=== PATIENT | female | born 1955 | race Caucasian/White ===

== ENCOUNTER → 2020-03-07 17:38 | Outpatient (CLI) | payer MEDICARE, BC, SELFPAY ==
--- NOTE | ~2020-03-07 | MM_ITS ---
EXAMINATION: MM screening [facility] BI w christie HISTORY: Screening mammogram TECHNIQUE: Craniocaudal and mediolateral oblique 3-D tomosynthesis images were obtained and synthetic 2-D images were generated. CAD analysis was submitted and interpreted. COMPARISON: 11/21/2018 bilateral digital screening mammogram 12/09/2017 diagnostic right digital mammogram and limited right breast ultrasound 11/08/2017, 10/07/2016, 09/27/2015 bilateral digital screening mammogram examinations BREAST PARENCHYMAL COMPOSITION: There are scattered areas of fibroglandular density. FINDINGS: 6 mm asymmetric low-density opacity is noted posteriorly in the inner mid right breast. Diane gnostic right mammogram and targeted right breast ultrasound examination are recommended. Otherwise there is no evidence of suspicious mass, calcification, or architectural distortion to sugg est malignancy in either breast. There has been no other suspicious interval change. IMPRESSION: 1. 6 mm asymmetry in posterior inner mid right breast 2. Diagnostic right mammogram and targeted right breast ultrasound examination are recommended. BI-RADS Category 0: Incomplete: Needs additional imaging evaluation. Reviewed, dictated and finalized at location B. 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
== END ==
PROVIDERS: Visit Provider Nurse Practitioner Obstetrics & Gynecology
DX: Z12.31 Encounter for screening mammogram for malignant neoplasm of breast (principal); R92.8 Other abnormal and inconclusive findings on diagnostic imaging of breast
CPT/HCPCS: 77063; 77067

== ENCOUNTER → 2020-04-04 14:19 | Outpatient (CLI) | payer MEDICARE, BC, SELFPAY ==
--- NOTE | ~2020-04-04 | MMUS_ITS ---
EXAMINATION: MM diagnostic mammo unilat RT, US breast RT limited HISTORY: Right breast mass on screening mammogram TECHNIQUE: Additional 3-D tomosynthesis images of the right breast were performed and synthetic 2-D i mages were generated. CAD analysis was submitted and interpreted. High resolution limited right breas t ultrasound was performed. COMPARISON: 03/07/2020, 11/21/2018, 12/19/2017, 11/08/2017 FINDINGS: MAMMOGRAPHIC FINDINGS: There is a 7 mm oval, obscured, low density mass in the posterior third of inner breast at the 3:00 l ocation 9 cm from the nipple. With spot compression, this is demonstrated to be stable when compared with prior mammograms, consistent with a benign finding. No suspicious calcification or architectural distortion are identified. ULTRASOUND: There is no evidence of focal abnormal solid or cystic lesion in the vicinity of the mammographic fin ding in question. IMPRESSION: 1. No mammographic or sonographic evidence of malignancy. 2. Recommend routine screening mammography in one year. BI-RADS Category 2: Benign finding(s). Reviewed, dictated and finalized at location A. RITIES ADVISER IMPRESSION: 1. No mammographic or sonographic evidence of malignancy. 2. Recommend routine screening mammography in one year. BI-RADS Category 2: Benign finding(s).
== END ==
PROVIDERS: Visit Provider Nurse Practitioner Obstetrics & Gynecology
DX: R92.8 Other abnormal and inconclusive findings on diagnostic imaging of breast (principal)
CPT/HCPCS: 76642; 77065

== ENCOUNTER → 2020-04-19 17:34 | Outpatient (CLI) | payer MEDICARE, BC, SELFPAY ==
--- NOTE | ~2020-04-19 | DEXA_ITS ---
Bone Density Report Name: Karlee Mendez Age: 65 Sex: Female Ethnicity: White Date of : 1955 Indication: postmenopausal; screening for osteoporosis; height loss; Referring Provider: Nadya, Kathryn Hooks Study: Bone densitometry was performed. Exam Date: April 19, 2020 Accession number: [id number] Bone Density: Region BMD T-score Z-score Classification AP Spine (L1-L4) 1.023 -0.2 1.6 Normal Femoral Neck (Left) 0.692 -1.4 0.1 Osteopenia Total Hip (Left) 0.829 -0.9 0.4 Normal Femoral Neck (Right) 0.692 -1.4 0.2 Osteopenia Total Hip (Right) 0.835 -0.9 0.4 Normal Total Hip Mean 0.832 -0.9 0.4 Normal World Health Organization criteria for BMD impression classify patients as: Normal (T-score at or above -1.0), Osteopenia (T-score between -1.0 and -2.5), or Osteoporosis (T-score at or below -2.5). 10-year Fracture Risk(1): Major Osteoporotic Fracture 8.2% Hip Fracture 0.8% Reported Risk Factors: [place] (), Neck BMD=0.692, BMI=36.4 (1) FRAX(R) Version 3.08. Fracture probability calculated for an untreated patient. Fracture probability may be lower if the patient has received treatment. Previous Exams: Region Exam Age BMD T-score BMD Change BMD Change Date g/cm2 vs Baseline vs Previous AP Spine(L1-L4) 04/19/2020 65 1.023 -0.2 -0.021 0.030* 11/08/2017 62 0.992 -0.5 -0.051 0.017 09/27/2015 60 0.975 -0.7 -0.068 -0.003 10/16/2011 56 0.978 -0.6 -0.066* -0.008 04/20/2008 53 0.986 -0.6 -0.058* -0.058* 03/11/2005 49 1.044 0.0 Total Hip(Left) 04/19/2020 65 0.829 -0.9 -0.152 -0.017 11/08/2017 62 0.846 -0.8 -0.134 -0.026 09/27/2015 60 0.872 -0.6 -0.108 0.030 10/16/2011 56 0.843 -0.8 -0.138* -0.060* 04/20/2008 53 0.903 -0.3 -0.077* -0.077* 03/11/2005 49 0.980 0.3 Total Hip(Right) 04/19/2020 65 0.835 -0.9 -0.085 -0.014 11/08/2017 62 0.849 -0.8 -0.071 0.000 09/27/2015 60 0.849 -0.8 -0.072 0.059 10/16/2011 56 0.790 -1.2 -0.131* -0.067* 04/20/2008 53 0.857 -0.7 -0.064* -0.064* 03/11/2005 49 0.921 -0.2 *Denotes significance at 95% confidence level, LSC for AP Spine = 0.022 g/cm2, LSC for Total Hip = 0.027 g/cm2 Clinical Information Provided by Patient:
== END ==
PROVIDERS: Visit Provider Nurse Practitioner Obstetrics & Gynecology
DX: Z78.0 Asymptomatic menopausal state (principal); M85.852 Other specified disorders of bone density and structure, left thigh; M85.851 Other specified disorders of bone density and structure, right thigh
CPT/HCPCS: 77080

== ENCOUNTER → 2021-08-03 13:38 | Outpatient (CLI) | payer MEDICARE, BC, SELFPAY ==
--- NOTE | ~2021-08-03 | MM_ITS ---
EXAMINATION: MM screening myrna BI w christie HISTORY: Screening mammogram TECHNIQUE: Craniocaudal and mediolateral oblique 3-D tomosynthesis images were obtained and synthetic 2-D images were generated. CAD analysis was submitted and interpreted. COMPARISON: April 04, 2020 diagnostic right mammogram and limited right breast ultrasound March 07, 2020, November 21, 2018 bilateral screening mammogram examinations December 09, 2017 diagnostic right mammogram and limited right breast ultrasound November 08, 2017 bilateral screening mammogram BREAST PARENCHYMAL COMPOSITION: There are scattered areas of fibroglandular density. FINDINGS: Stable circumscribed low-density opacity in the inner mid right breast posteriorly. There i s no evidence of suspicious mass, calcification, or architectural distortion to suggest malignancy in either breast. There has been no suspicious interval change. IMPRESSION: 1. No mammographic evidence of malignancy. 2. Recommend routine screening mammography in one year. BI-RADS Category 2: Benign finding(s).. Reviewed, dictated and finalized at location A.
== END ==
PROVIDERS: PCP Internal Medicine; Visit Provider Internal Medicine
DX: Z12.31 Encounter for screening mammogram for malignant neoplasm of breast (principal)
CPT/HCPCS: 77063; 77067

== ENCOUNTER 2022-06-17 09:03 | Emergency (ER) | payer MEDICARE, BC, SELFPAY ==
--- NOTE | ~2022-06-17 | XR_ITS ---
XR wrist LT min 3V DATE: 06/17/2022 09:21 INDICATION: Fall. Lateral pain, limited range of motion TECHNIQUE: 4 views COMPARISON: None FINDINGS: There is a minimally displaced comminuted intra-articular fracture of the distal radius, wi th dorsal inclination of the distal radial articular surface. The distal ulna including ulnar styloid process appears intact. Severe osteoarthritic the first carpometacarpal joint. Osteopenia. IMPRESSION: Comminuted intra-articular fracture of the distal radius Reviewed, dictated and finalized at location B.
--- NOTE | 2022-06-17 09:42 | ED.GENADULT ---
HPI - General Adult General Chief complaint: Extremity Injury, Upper <PUJA Cevallos Last Filed: 06/17/22 10:51> Stated complaint: fall, Left wrist pain <PUJA Cevallos Last Filed: 06/17/22 10:51> Time Seen by Provider: 06/17/22 09:08 <Cas Greenberg PA-C - Last Filed: 06/17/22 10:51> Source: patient <PUJA Cevallos Last Filed: 06/17/22 10:51> Mode of arrival: ambulatory <PUJA Cevallos Last Filed: 06/17/22 10:51> Limitations: no limitations <PUJA Cevallos Last Filed: 06/17/22 10:51> History of Present Illness HPI narrative: This is a 59-year-old female presents to the ED with chief complaint of left wrist injury onset this morning just prior to arrival. Patient was walking downstairs and tripped on the last step and fell onto the left upper extremity. She felt immediate pain in the left wrist. Denies any further site of pain or injury. Denies numbness or weakness. Not on any blood thinners. <PUJA Cevallos Last Filed: 06/17/22 10:51> Related Data Home medications: Home Medications Medication Instructions Recorded Confirmed biotin 10,000 mcg capsule mcg PO 04/17/20 05/28/22 calcium carbonate 600 mg-vitamin 1 tablet PO DAILY 04/17/20 05/28/22 D3 20 mcg (800 unit) chewable tablet (Caltrate 600 plus D) multivitamin 1 tablet PO DAILY 04/17/20 05/28/22 <PUJA Cevallos Last Filed: 06/17/22 10:51> Allergies/adverse reactions: Allergies Allergy/AdvReac Type Severity Reaction Status Date / Time No Known Allergies Allergy Unknown Verified 01/08/22 13:26 <PUJA Cevallos Last Filed: 06/17/22 10:51> Review of Systems Review of Systems: CONSTITUTIONAL: Denies fever, chills, or sweats. SKIN: Denies rash or itching. MUSCULOSKELETAL: See HPI. NEUROLOGIC: Denies headache, numbness, dizziness, or weakness. PSYCHIATRIC: Denies anxiety or depression. <Cas Greenberg PA-C - Last Filed: 06/17/22 10:51> PMFSH Past Medical History Medical History: Medical History Arthritis Carpal tunnel syndrome on both sides High blood pressure <Cas Greenberg PA-C - Last Filed: 06/17/22 10:51> Family History Family History: Family History Mother Hypertension Father Heart disease <PUJA Cevallos Last Filed: 06/17/22 10:51> Social History Social History: Social History Smoking status: Never smoker Second hand tobacco smoke exposure: No Alcohol intake: never Substance use: never Substance use type: does not use Lack of Transportation: No Lack of Food: Never True Current Housing: I Have Housing Concerned About Future Housing: No Difficulty Paying Gas/Electric Bills: No Difficulty Paying for Meds: No Currently Unemployed: No Education: High School Diploma/GED Difficulty w/ Childcare or Family Care: No Gender identity (if verbalized by the patient): Female <Cas Greenberg PA-C Last Filed: 06/17/22 10:51> Exam Narrative: GENERAL: Well-appearing, well-nourished, and in no acute distress. HEAD: Normocephalic, atraumatic. EXTREMITIES: LUE: No deformity to the left wrist. No bruising. Mild swelling. Marked tenderness at the left lateral wrist. No anatomical snuffbox tenderness present. RUE: Benign. MSK exam is otherwise unremarkable. Normal range of motion. No edema. SKIN: Warm, dry, no rash. No bruising noted. No wounds. NEURO: Alert and oriented x3. No focal deficits. PSYCH: Normal mood and affect. <PUJA Cevallos Last Filed: 06/17/22 10:51> Course DOWNSTAIRS MAID/PA Physician Supervision This visit was performed by both a physician and an APC. I performed all aspects of the MDM as documented. <José Miguel Rai MD - Last Filed: 06/17/22 10:21> Vital Signs Vital signs: Vi
[2022-06-17] MEDS: HYDROcodone/acetaminophen (*CRX) 7.5-325 MG TABLET 1 TAB PO (09:44)
[2022-06-17 09:59] VITALS: BP 142/71; PULSE 68; RESP 16; O2SAT 97
[2022-06-17 10:38] VITALS: BP 141/79; PULSE 61; RESP 18; O2SAT 95
== END 2022-06-17 10:44 | disposition home or self-care (01) ==
PROVIDERS: Emergency Provider Physician Assistant; PCP Internal Medicine; Referring Provider Orthopaedic Surgery
DX: S52.572A Other intraarticular fracture of lower end of left radius, initial encounter for closed fracture (principal); I10 Essential (primary) hypertension; M19.90 Unspecified osteoarthritis, unspecified site; W10.9XXA Fall (on) (from) unspecified stairs and steps, initial encounter
CPT/HCPCS: 29125; 73110; 99284; A4565; A9270

== ENCOUNTER 2023-01-03 15:58 | Outpatient (CLI) | payer MEDICARE, BC, SELFPAY ==
--- NOTE | ~2023-01-03 | MM_ITS ---
EXAMINATION: MM screening myrna BI w christie HISTORY: Screening mammogram TECHNIQUE: Craniocaudal and mediolateral oblique 3-D tomosynthesis images were obtained and synthetic 2-D images were generated. CAD analysis was submitted and interpreted. COMPARISON: 08/03/2021, 03/07/2020 BREAST PARENCHYMAL COMPOSITION:There are scattered areas of fibroglandular density. FINDINGS: No suspicious mass, calcification, or architectural distortion are identified in either cindy ast to suggest malignancy. There has been no suspicious interval change. IMPRESSION: No mammographic evidence of malignancy. Recommend routine screening mammography in one year. BI-RADS Category 1: Negative Reviewed, dictated and finalized at location . 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
== END 2023-01-03 15:59 ==
LOC: MICIMG 16:00
PROVIDERS: PCP Nurse Practitioner; Visit Provider Nurse Practitioner
DX: Z12.31 Encounter for screening mammogram for malignant neoplasm of breast (principal)
CPT/HCPCS: 77063; 77067

== ENCOUNTER 2024-05-12 09:54 | Outpatient (CLI) | payer MEDICARE, BC, SELFPAY ==
--- NOTE | 2024-05-12 | ECG_ITS ---
Test Date: 2024-05-12 10:31:57 Measurements Intervals [place] Rate: 80 P: 66 LA: 168 QRS: 21 QRSD: 90 T: 35 QT: 380 QTc: 440 Interpretive Statements SINUS RHYTHM POSSIBLE LEFT ATRIAL ENLARGEMENT [-0.1mV P-WAVE IN V1/V2] No previous ECG available for comparison Electronically Signed On 05-12-2024 13:44:26 CDT by Whitney Torres M.D.
--- OUTSIDE RECORDS SUMMARY | 2024-05-12 10:56 | XMS_ITS | Clinical Summary ---
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
--- OUTSIDE RECORDS SUMMARY | 2024-05-12 10:56 | XMS_ITS | Encounter Summary ---
Author Organization [employer] Address 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
--- OUTSIDE RECORDS SUMMARY | 2024-05-12 10:56 | XMS_ITS | Encounter Summary ---
Author Organization [facility] [facility] Address 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
--- OUTSIDE RECORDS SUMMARY | 2024-05-12 10:56 | XMS_ITS | Encounter Summary ---
Author Organization [facility] Address 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
== END 2024-05-12 09:55 | disposition home or self-care (01) ==
LOC: ANHIMG 09:56 → ANHCARD 10:02
PROVIDERS: PCP Nurse Practitioner; Visit Provider Podiatrist Foot & Ankle Surgery
DX: R03.0 Elevated blood-pressure reading, without diagnosis of hypertension (principal)
CPT/HCPCS: 93005

== ENCOUNTER 2024-08-21 09:27 | Outpatient (CLI) | payer MEDICARE, BC, SELFPAY ==
--- NOTE | ~2024-08-21 | MM_ITS ---
EXAMINATION: MM screening [facility] BI w christie HISTORY: Screening mammogram TECHNIQUE: Craniocaudal and mediolateral oblique 3-D tomosynthesis images were obtained and synthetic 2-D images were generated. CAD analysis was submitted and interpreted. COMPARISON: 01/03/2023, 08/03/2021, 03/07/2020 BREAST PARENCHYMAL COMPOSITION:Not Dense. There are scattered areas of fibroglandular density. FINDINGS: No suspicious mass, calcification, or architectural distortion are identified in either cindy ast to suggest malignancy. There has been no suspicious interval change. IMPRESSION: No mammographic evidence of malignancy. Recommend routine screening mammography in one year. BI-RADS Category 1: Negative Reviewed, dictated and finalized at location .
== END 2024-08-21 09:28 | disposition home or self-care (01) ==
LOC: MICIMG 09:28
PROVIDERS: PCP Nurse Practitioner; Visit Provider Nurse Practitioner
DX: Z12.31 Encounter for screening mammogram for malignant neoplasm of breast (principal)
CPT/HCPCS: 77063; 77067

== ENCOUNTER 2024-08-25 15:13 | Outpatient (CLI) | payer MEDICARE, BC, SELFPAY ==
--- NOTE | ~2024-08-25 | DEXA_ITS ---
Bone Density Report Name: NOLAN JOHNSON Age: 69 Sex: Female Ethnicity: White Date of : 1955 Indication: postmenopausal; screening for osteoporosis; height loss; prior fracture; Referring Provider: JULIET KAUFFMAN Study: Bone densitometry was performed. Exam Date: August 25, 2024 Accession number: [id number] Bone Density: Region BMD T-score Z-score Classification AP Spine(L1-L4) 0.995 -0.5 1.7 Normal Femoral Neck (Left) 0.685 -1.5 0.3 Osteopenia Total Hip (Left) 0.824 -1.0 0.6 Normal Femoral Neck (Right) 0.679 -1.5 0.3 Osteopenia Total Hip (Right) 0.763 -1.5 0.1 Osteopenia Total Hip Mean 0.794 -1.3 0.4 Osteopenia World Health Organization criteria for BMD impression classify patients as: Normal (T-score at or above -1.0), Osteopenia (T-score between -1.0 and -2.5), or Osteoporosis (T-score at or below -2.5). 10-year Fracture Risk(1): Major Osteoporotic Fracture 14% Hip Fracture 1.9% Reported Risk Factors: [place] (), Neck BMD=0.679, BMI=37.9, previous fracture (1) FRAX(R) Version 3.08. Fracture probability calculated for an untreated patient. Fracture probability may be lower if the patient has received treatment. Previous Exams: -- Region Exam Age BMD T-score BMD Change BMD Change Date g/cm2 vs Baseline vs Previous -- AP Spine (L1-L4) 08/25/2024 69 0.995 -0.5 -4.6%* -2.7%# 04/19/2020 65 1.023 -0.2 -2.0%# 3.1%* 11/08/2017 62 0.992 -0.5 -4.9%# 1.7% 09/27/2015 60 0.975 -0.7 -6.5%# -0.3%# 10/16/2011 56 0.978 -0.6 -6.3%* -0.8% 04/20/2008 53 0.986 -0.6 -5.5%* -5.5%* 03/11/2005 49 1.044 0.0 Total Hip(Left) 08/25/2024 69 0.824 -1.0 -15.9%* -0.5%# 04/19/2020 65 0.829 -0.9 -15.5%# -2.0% 11/08/2017 62 0.846 -0.8 -13.7%# -3.0% 09/27/2015 60 0.872 -0.6 -11.0%# 3.5%# 10/16/2011 56 0.843 -0.8 -14.1%* -6.7%* 04/20/2008 53 0.903 -0.3 -7.9%* -7.9%* 03/11/2005 49 0.980 0.3 Total Hip(Right) 08/25/2024 69 0.763 -1.5 -17.1%* -8.7%# 04/19/2020 65 0.835 -0.9 -9.2%# -1.6% 11/08/2017 62 0.849 -0.8 -7.7%# 0.1% 09/27/2015 60 0.849 -0.8 -7.8%# 7.5%# 10/16/2011 56 0.790 -1.2 -14.2%* -7.8%* 04/20/2008 53 0.857 -0.7 -6.9%* -6.9%* 03/11/2005 49 0.921 -0.2 -- *Denotes significance at 95% confidence level, LSC for AP Spine = 0.022 g/cm2, LSC for Total Hip = 0.027 g/cm2 # Denotes dissimilar scan types or analysis methods Clinical Information Provided by Patient: Has had a low trauma fracture Has used the following medications: Vitamin D, Calcium Patient maximum height was 66 Menopause Age: 53 No regular weight bearing exercise Onset of menses at age 11 Number of children 2 Impression: The patient has low bone mass, based on the Right Total Hip T-score. The patient has an estimated ten-year risk of hip fracture of 1.9% and an estimated ten-year risk of major fracture of 14%, based on the WHO FRAX algorithm. The patient has risk factors, including: previous fracture. Unable to evaluate interval change due to the use of different scan modes. Discussion: BONE DENSITY IS LOW AT ONE OR MORE SKELETAL SITES. This patient's lowest T-score is low at one or more skeletal sites. It meets the World Health Organization's (WHO) criteria for ?low bone mass? (T-score between -1.0 and -2.5). The patient's 10-year risk of fracture as calculated by FRAX is less than the threshold where pharmacological therapy is recommended by the National Osteoporosis Foundation (NOF). However, all treatment decisions require clinical judgment and consideration of individual patient factors, including patient preferences, comorbidities, previous drug use, risk factors not captured in the FRAX model (e.g., frailty, falls, vitamin D deficiency, increased bone turnover, interval significant decline in bone density) and possible under or overestimation of fracture risk by FRAX. The patient should follow a healthful lifestyle (good nutrition with adequate calcium and vitamin D, and appropriate weight-bearing exercise). Follow-Up: Consider repeating this study in 2 to 3 years to reassess this patient's status, or sooner if there is some new clinical indication. Reported by: RADHA on 08/25/2024 3:30:00 PM. Reviewed, dictated and finalized at location A.
== END 2024-08-25 15:14 | disposition home or self-care (01) ==
LOC: MICIMG 15:13
PROVIDERS: PCP Nurse Practitioner; Visit Provider Nurse Practitioner
DX: Z78.0 Asymptomatic menopausal state (principal); M85.852 Other specified disorders of bone density and structure, left thigh; M85.851 Other specified disorders of bone density and structure, right thigh
CPT/HCPCS: 77080